=== PATIENT | male | born 1955 | race Caucasian/White ===

== ENCOUNTER 2017-11-20 18:39 | Observation (INO) | payer OTHER ==
[~2017-11-20] VITALS: Ht 177.8 cm; Wt 78.3 kg
[~2017-11-20 18:39] MED LIST: ADVAIR 250/501 DISK IH; ALBUTEROL SULF8.5 GM IH; ALLEGRA ALLERG180 MG PO; CIALIS20 MG PO; DIOVAN HCT 11 TABLET PO; EFFEXOR XR37.5 MG PO; FISH OIL 1,0001 EAC7 PO; LO-DOSE ASPIRIN81 M2 PO; NASONEX17 GM NS; NEXIUM40 MG PO; RESTASIS 01 DROP/0.4 BOTH EYES
[2017-11-20 19:38] LABS: BASOPHIL (%) 0.8 % (0-1); BASOPHIL COUNT 0.1 K/uL (0-0.1); EOSINOPHIL (%) 2.6 % (0-5); EOSINOPHIL COUNT 0.2 K/uL (0-0.3); HEMATOCRIT 39.2 % (38.0-50.0); HEMOGLOBIN 14.3 G/DL (12.5-16.6); IMMATURE GRANULOCYTE (%) 0.5 % (0.0-0.7); LYMPHOCYTE (%) 27.1 % (15-42); LYMPHOCYTE COUNT 2.3 K/uL (1.0-2.8); MCH 32.7 PG (29.0-34.0); MCHC 36.5 G/DL (30.0-36.0); MCV 89.7 FL (86-99); MONOCYTE (%) 7.8 % (3-12); MONOCYTE COUNT 0.7 K/uL (0-0.8); NEUTROPHIL (%) 61.2 % (45-76); NEUTROPHIL COUNT 5.1 K/uL (1.8-6.4); PLATELET COUNT 253 K/uL (156-360); RBC DIS.WIDTH-CV 11.8 % (11.8-14.6); RBC DIS.WIDTH-SD 38.3 % (39-53); RED BLOOD COUNT 4.37 M/uL (4.00-5.50); WHITE BLOOD COUNT 8.3 K/uL (4.1-10.2)
[2017-11-20 19:46] LABS: CHLORIDE 93 mEq/L (99-109); SODIUM 126 mEq/L (136-147)
[2017-11-20 19:47] LABS: GLUCOSE 100 mg/dL (70-99)
[2017-11-20 19:51] LABS: CREATININE 0.8 mg/dL (0.6-1.3); GFR ESTIMATE (CALCULATED) > 59 mL/min/ (58.99-99999)
[2017-11-20 19:52] LABS: UREA NITROGEN (BUN) 9 mg/dL (9-23)
[2017-11-20 20:00] LABS: TROP-I INTERPRETATION NEGATIVE; TROPONIN-I < 0.01 ng/mL (0.0-0.30)
[2017-11-20] MEDS ORDERED: TRAVATAN Z5 ML BOTH EYES (20:38)
[2017-11-20 22:33] VITALS: BP 158/91
[2017-11-21 00:44] LABS: TROP-I INTERPRETATION NEGATIVE; TROPONIN-I < 0.01 ng/mL (0.0-0.30)
[2017-11-21 04:06] VITALS: BP 126/81
[2017-11-21 05:32] LABS: TROP-I INTERPRETATION NEGATIVE; TROPONIN-I < 0.01 ng/mL (0.0-0.30)
[2017-11-21 05:40] LABS: CHLORIDE 101 MEQ/L (99-109); CREATININE 0.8 MG/DL (0.6-1.3); GFR ESTIMATE (CALCULATED) > 59 mL/min/ (58.99-99999); GLUCOSE 85 mg/dL (70-99); POTASSIUM 4.5 MEQ/L (3.7-5.4); UREA NITROGEN (BUN) 7 mg/dL (9-23)
[2017-11-21 05:46] LABS: SODIUM 136 MEQ/L (136-147)
[2017-11-21 07:48] VITALS: BP 169/96
[2017-11-21 11:49] VITALS: BP 160/89
== END 2017-11-21 14:45 | disposition home or self-care (01) ==
LOC: EME 18:39 → EDOF 20:55 → 4SOUTH 20:55 → EDOF 20:55 → ENRESERV 20:59 → 4SOUTH 22:08
PROVIDERS: Hospitalist; Physician Assistant
PROC: B246ZZZ Ultrasonography of Right and Left Heart (ICD-10-PCS; principal; 2017-11-21)
DX: R07.9 Chest pain, unspecified (principal); I10 Essential (primary) hypertension; E87.1 Hypo-osmolality and hyponatremia; R00.2 Palpitations; I48.91 Unspecified atrial fibrillation; I25.10 Atherosclerotic heart disease of native coronary artery without angina pectoris; E78.5 Hyperlipidemia, unspecified; F32.9 Major depressive disorder, single episode, unspecified; Z82.49 Family history of ischemic heart disease and other diseases of the circulatory system; J45.20 Mild intermittent asthma, uncomplicated; H40.9 Unspecified glaucoma; Z83.3 Family history of diabetes mellitus; Z79.82 Long term (current) use of aspirin; Z88.5 Allergy status to narcotic agent
CPT/HCPCS: 71046; 80048; 84484; 85025; 93005; 93306; 99202; 99281; 99285; G0378; J1644; J3475; J7030